=== PATIENT | female | born 1985 | race Caucasian/White ===

== ENCOUNTER → 2018-05-26 15:04 | Outpatient (CLI) | payer SELFPAY ==
[2018-05-30 03:37] LABS: AFP Value 53.2 ng/mL (.); DIA MoM 1.19 (.); DIA Value 268.27 pg/mL (.); DSR (Second Trimester) 1 IN 1946 (.); Gest. Age on Collection Date 20.6 WEEKS (.); Maternal Age At EDD 31.6 yr (.); OSBR Risk 1 IN 10000 (.); Results Report (.); hCG MoM 1.57 (.); uE3 MoM 1.77 (.); uE3 Value 3.61 ng/mL (.)
[2018-05-30 12:32] LABS: Gestat. Age Based On EDD (.)
== END ==
PROVIDERS: Visit Provider Obstetrics & Gynecology
DX: Z34.90 Encounter for supervision of normal pregnancy, unspecified, unspecified trimester (principal)
CPT/HCPCS: 36415; 82106